=== PATIENT | male | born 1995 | race Caucasian/White ===

== ENCOUNTER 2019-09-13 13:38 | Emergency (ER) | payer MEDICAID ==
[~2019-09-13] VITALS: Ht 170.2 cm; Wt 118.2 kg
[~2019-09-13 13:38] MED LIST: ALPR-624 PO; OMEP40CA13 PO; TRIA15CR61 TP
[2019-09-13 13:40] VITALS: BP 129/75
[2019-09-13] MEDS ORDERED: CIPR10DR RIGHT EAR (14:37)
== END 2019-09-13 14:45 | disposition home or self-care (01) ==
LOC: ER 13:39
DX: S00.401A Unspecified superficial injury of right ear, initial encounter (principal); F12.90 Cannabis use, unspecified, uncomplicated; Z79.899 Other long term (current) drug therapy; X58.XXXA Exposure to other specified factors, initial encounter; Y93.89 Activity, other specified; Y92.89 Other specified places as the place of occurrence of the external cause; Y99.8 Other external cause status
CPT/HCPCS: 99283

== ENCOUNTER 2020-01-31 19:16 | Emergency (ER) | payer MEDICAID ==
[~2020-01-31] VITALS: Ht 167.6 cm; Wt 113.6 kg
[2020-01-31 19:52] VITALS: BP 140/88
[2020-01-31] MEDS ORDERED: SULF1TAB49 PO (19:52)
[2020-01-31] MEDS ORDERED: MUPI22OI30 TOP (19:52)
== END 2020-01-31 20:07 | disposition home or self-care (01) ==
LOC: ER 19:17
DX: L02.416 Cutaneous abscess of left lower limb (principal); F12.90 Cannabis use, unspecified, uncomplicated; Z79.899 Other long term (current) drug therapy
CPT/HCPCS: 99283

== ENCOUNTER 2025-01-30 17:16 | Emergency (ER) | payer BC, MEDICAID ==
[~2025-01-30] VITALS: Ht 170.2 cm; Wt 119.8 kg
[~2025-01-30 17:16] MED LIST changes: -OMEP40CA13 PO; +OMEP40CA21 PO
--- NOTE | 2025-01-30 17:54 | RADIOLOGY REPORT ---
CLINICAL INDICATION: PAIN RIGHT SHOULDER TECHNIQUE: 3 radiographic views of the right shoulder were obtained. Comparison: None FINDINGS/IMPRESSION: There is acute comminuted displaced fracture of the right midclavicle. No shoulder dislocation. No fractures of the glenohumeral joint.
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
[2025-01-30] MEDS: HYDROcodone/acetaminophen 5mg/325mg tablet PO ONE (18:18)
[2025-01-30] MEDS ORDERED: HYDR-3972 PO (18:24)
[2025-01-30 18:50] VITALS: BP 128/63; PULSE 59; RESP 12; TEMP 97.3; O2SAT 96
== END 2025-01-30 18:54 | disposition home or self-care (01) ==
LOC: ER 17:17
DX: S42.021A Displaced fracture of shaft of right clavicle, initial encounter for closed fracture (principal); F12.90 Cannabis use, unspecified, uncomplicated; Z79.899 Other long term (current) drug therapy; V19.9XXA Pedal cyclist (driver) (passenger) injured in unspecified traffic accident, initial encounter; Y93.89 Activity, other specified; Y92.89 Other specified places as the place of occurrence of the external cause; Y99.8 Other external cause status
CPT/HCPCS: 29105; 73030; 99283; A4565